=== PATIENT | male | born 1995 | race Hispanic/Latino ===

== ENCOUNTER 2018-07-24 08:31 | Emergency (ER) | payer MEDICAID, SELFPAY ==
[2018-07-24] MEDS ORDERED: LEVALBUTEROL 1.25 MG/3 ML NEB ONE ×2 (09:06→10:32)
[2018-07-24] MEDS ORDERED: IPRATROPIUM BROM 0.5MG/2.5ML ONE (09:06)
[2018-07-24] MEDS ORDERED: IBUPROFEN 200 MG TAB PO ONE (09:07)
[2018-07-24] MEDS ORDERED: NA CHLORIDE 0.9% 1,000 ML ONE (09:07)
[2018-07-24] MEDS ORDERED: IBUPROFEN 400 MG TAB ONE (09:07)
[2018-07-24 09:24] LABS: Absolute Lymphocytes (CBC) 1.8 K/uL (0.7-4.9); Absolute Monocytes 0.7 K/uL (0.1-1.3); Absolute Neutrophil 11.2 K/uL (1.8-8.0); Basophils % 0.5 % (0-1.3); Eosinophils % 1.3 % (0-4.4); Hematocrit 43.5 % (39.6-49.0); Lymphocytes % 13.1 % (15.3-44.8); MPV 9.2 fL (7.6-11.3); Monocytes % 4.9 % (3.3-12.3); RBC Red Blood Cell Count 5.11 M/uL (4.33-5.43)
[2018-07-24 09:30] LABS: Protime INR 1.16
[2018-07-24 09:46] LABS: ALT/SGPT 79 U/L (12-78); AST/SGOT 21 U/L (15-37); Albumin 3.8 g/dL (3.4-5.0); Alkaline Phosphatase 128 U/L (45-117); BUN Blood Urea Nitrogen 10 mg/dL (7-18); Bicarbonate 25 mmol/L (21-32); Bilirubin Direct 0.1 mg/dL (0-0.2); Bilirubin Total 0.4 mg/dL (0.2-1.0); Glucose Level 104 mg/dL (74-106); Potassium 3.8 mmol/L (3.5-5.1); Protein, Total 7.9 g/dL (6.4-8.2); Sodium Level 139 mmol/L (136-145); Troponin (Emerg Dept Use Only) < 0.02 ng/mL (0.0-0.045)
[2018-07-24 09:48] LABS: NT PRO-BNP < 5 pg/mL (<125)
[2018-07-24] MEDS ORDERED: predniSONE 20 MG TAB ONE (10:32)
[2018-07-24] MEDS ORDERED: CEFTRIAXONE/SWI 1gm 1 GM/10 ML SYR ONE (10:32)
--- NOTE | 2018-07-24 11:07 | RAD REPORT ---
EXAM DESCRIPTION: RAD - Chest Pa And Lat (2 Views) - 07/24/2018 9:37 am CLINICAL HISTORY: Dyspnea;Cough Chest pain. COMPARISON: No comparisons FINDINGS: The lungs are clear. The heart is upper limit of normal in size. No displaced fractures. IMPRESSION: No acute or concerning finding suspected.
--- NOTE | 2018-07-24 11:39 | RAD REPORT ---
EXAM DESCRIPTION: CT - Chest For Pe Angio - 07/24/2018 11:32 am CLINICAL HISTORY: Chest pain. Chest pain;Dyspnea;Cough COMPARISON: Chest Pa And Lat (2 Views) dated 07/24/2018 TECHNIQUE: CT angiogram of the pulmonary arteries was performed with MIP. All CT scans are performed using dose optimization technique as appropriate and may include automated exposure control or mA/KV adjustment according to patient size. FINDINGS: No evidence of pulmonary thromboembolism. No acute aortic finding demonstrated. Subtle areas of ground-glass opacity seen in both lung bases. No focal consolidation. No significant pericardial or pleural fluid. No concerning bony finding. IMPRESSION: No evidence of pulmonary thromboembolism. Subtle ground-glass opacities in both posterior lung bases could mild indicate atypical infection.
--- NOTE | 2018-07-24 12:21 | ER ---
Nurse's Notes [facility] Name: Jorge Barnes III Age: 23 yrs Sex: Male : 1995 Arrival Date: 07/24/2018 Time: 08:35 Bed 7 Private MD: None, None Diagnosis: Unspecified bacterial pneumonia Presentation: 07/24 08:48 Presenting complaint: Patient states: c/o productive cough, congestion, SOB. Transition iw of care: patient was not received from another setting of care. Onset of symptoms was June 2018. Risk Assessment: Do you want to hurt yourself or someone else? Patient reports no desire to harm self or others. Initial Sepsis Screen: Does the patient meet any 2 criteria? HR > 90 bpm. Does the patient have a suspected source of infection? No. Patient's initial sepsis screen is negative. Care prior to arrival: None. 08:48 Method Of Arrival: Ambulatory iw 08:48 Acuity: SB 3 iw Historical: - Allergies: 08:50 No Known Allergies; iw - Home Meds: 08:50 None [Active]; iw - PMHx: 08:50 None; iw - PSHx: 08:50 Tonsillectomy; iw - Immunization history:: Adult Immunizations not up to date. - Social history:: Smoking status: Patient uses tobacco products, smokes one-half pack cigarettes per day. - Ebola Screening: : Patient negative for fever greater than or equal to 101.5 degrees Fahrenheit, and additional compatible Ebola Virus Disease symptoms Patient denies exposure to infectious person Patient denies travel to an Ebola-affected area in the 21 days before illness onset No symptoms or risks identified at this time. Screenin:23 Abuse screen: Denies threats or abuse. Denies injuries from another. Nutritional jl7 screening: No deficits noted. Tuberculosis screening: No symptoms or risk factors identified. Fall Risk IV access (20 points). Total Hudson Fall Scale indicates No Risk (0-24 pts). Assessment: 09:00 General: Appears in no apparent distress. uncomfortable, Behavior is calm, cooperative, jl7 appropriate for age. Pain: Denies pain. Neuro: Level of Consciousness is awake, alert, obeys commands, Oriented to person, place, time, situation. Cardiovascular: Heart tones present Diaphoretic. Rhythm is sinus tachycardia Chest pain is denied. Respiratory: Airway is patent Respiratory effort is even, unlabored, Respiratory pattern is regular, symmetrical, Breath sounds are coarse Breath sounds with crackles bilaterally. Breath sounds with wheezes in left posterior upper lobe and right posterior upper lobe. Derm: Skin is diaphoretic, Skin is normal, Skin temperature is warm. 10:00 Reassessment: Patient appears in no apparent distress at this time. No changes from jl7 previously documented assessment. Patient and/or family updated on plan of care and expected duration. Pain level reassessed. Patient is alert, oriented x 3, equal unlabored respirations, skin warm/dry/pink. 11:00 Reassessment: Patient appears in no apparent distress at this time. No changes from jl7 previously documented assessment. Patient and/or family updated on plan of care and expected duration. Pain level reassessed. Patient is alert, oriented x 3, equal unlabored respirations, skin warm/dry/pink. 12:00 Reassessment: Patient and/or family updated on plan of care and expected duration. Pain jl7 level reassessed. Patient is alert, oriented x 3, equal unlabored respirations, skin warm/dry/pink. Patient denies pain at this time. Vital Signs: 08:50 BP 142 / 94; Pulse 125; Resp 20; Temp 98.0(O); Pulse Ox 98% on R/A; Weight 154.22 kg; iw Height 6 ft. 2 in. (187.96 cm); Pain 0/10; 09:23 BP 125 / 90; Pulse 115; Resp 13 S; Pulse Ox 94% on R/A; jl7 10:18 BP 114 / 78; Pulse 109; Resp 15 S; Temp 98.9(O); Pulse Ox 94% on R/A; jl7 10:48 BP 111 / 67; Pulse 129; Resp 17 S; Pulse Ox 95% on R/A; jl7 12:17 BP 120 / 74; Pulse 104; Resp 17; Pulse Ox 96% on R/A; jb1 08:50 Body Mass Index 43.65 (154.22 kg, 187.96 cm) ED Course: 08:35 Patient arrived in ED. mr 08:36 None, None is Private Physician. mr 08:39 Claudia Deng NP is PHCP. rh1 08:39 nAder Pope MD is Attending Physician. rh1 08:40 Keny Murphy, RN is Primary Nurse. bp 08:49 Triage completed. iw 08:50 Arm band placed on. iw 09:23 Patient has correct armband on for positive identification. Bed in low position. Call jl7 light in reach. Side rails up X 1. shelter monitor on. Pulse ox on. NIBP on. Warm blanket given. 09:23 Initial lab(s) drawn, by me, sent to lab. Flu and/or RSV swab sent to lab. Inserted jl7 saline lock: 22 gauge in right antecubital area, using aseptic technique. Blood collected. 09:30 Chest Pa And Lat (2 Views) XRAY In Process Unspecified. EDMS 10:32 Primary Nurse role handed off by Keny Murphy RN jl7 10:32 Manolo Harp RN is Primary Nurse. jl7 11:32 CT Chest For PE Angio In Process Unspecified. EDMS 13:00 No provider procedures requiring assistance completed. IV discontinued, intact, jl7 bleeding controlled, No redness/swelling at site. Pressure dressing applied. Administered Medications: 09:00 Drug: Xopenex 1.25 mg Route: Inhalation; jl7 09:25 Follow up: Response: No adverse reaction jl7 09:00 Drug: AtroVENT Aerosol 0.5 mg Route: Inhalation; jl7 09:25 Follow up: Response: No adverse reaction jl7 09:24 Drug: NS 0.9% 1000 ml Route: IV; Rate: 1 bolus; Site: right antecubital; jl7 09:24 Drug: Motrin 600 mg Route: PO; jl7 10:30 Follow up: Response: No adverse reaction jl7 10:28 Not Given (Other Intervention Used): Rocephin - (cefTRIAXone) 1 grams IVPB once over 30 jl7 mins; (mix in 50 mL NS) 10:28 Not Given (Other Intervention Used): Rocephin - (cefTRIAXone) 1 grams IVPB once over 30 jl7 mins; (mix in 50 mL NS) 10:29 Drug: Xopenex (3) 1.25 mg Route: Inhalation; jl7 11:00 Follow up: Response: No adverse reaction jl7 10:29 Drug: Rocephin 1 grams Route: IV; Rate: calculated rate; Site: right antecubital; jl7 10:32 Follow up: Response: No adverse reaction; IV Status: Completed infusion jl7 10:30 Drug: predniSONE 60 mg Route: PO; jl7 11:00 Follow up: Response: No adverse reaction jl7 Outcome: 12:21 Discharge ordered by . rh1 13:00 Discharged to home ambulatory. jl7 13:00 Condition: stable 13:00 Discharge instructions given to patient, Instructed on discharge instructions, follow up and referral plans. medication usage, Demonstrated understanding of instructions, follow-up care, medications, Prescriptions given X 3. 13:16 Patient left the ED. iw Signatures: Dispatcher [employer] EDMS Jerod Estrada jb1 FarooqTanja mr Vianca Castañeda, RN RN iw Claudia Deng PLASTIC PROCESS TECHNICIAN PLASTIC PROCESS TECHNICIAN 1 Manolo Harp RN RN jl7 Keny Murphy RN RN bp Corrections: (The following items were deleted from the chart) 09:21 09:19 General: Appears in no apparent distress. uncomfortable, Behavior is calm, jl7 cooperative, appropriate for age, jl7
--- NOTE | 2018-07-24 12:22 | EDPHYS ---
Physician Documentation [facility] Name: Jorge Barnes III Age: 23 yrs Sex: Male : 1995 Arrival Date: 07/24/2018 Time: 08:35 Bed 7 Private MD: None, None ED Physician Ander Pope HPI: 07/24 08:41 This 23 yrs old Male presents to ER via Ambulatory with complaints of rh1 Congestion. 08:41 The patient or guardian reports cough, described as moderate, with productive sputum, rh1 that is green, difficulty breathing, flu symptoms, arthralgias, myalgias. Onset: The symptoms/episode began/occurred 2 day(s) ago. Modifying factors: The symptoms are alleviated by nothing. the symptoms are aggravated by activity. Associated signs and symptoms: Pertinent positives: chest pain, with cough, with breathing, fever, rhinorrhea, Pertinent negatives: diarrhea, ear ache, sore throat, vomiting. Severity of symptoms: At their worst the symptoms were moderate in the emergency department the symptoms are unchanged. The patient has experienced a previous episode, last year. The patient has not recently seen a physician. He began with intermittent chills, body aches, productive coughing with green sputum, PND, nasal congestion, decreased smell/taste 2 days ago. + frontal BAR, described as pressure gradually began yesterday. Difficulty breathing with exertion, sternal pain with coughing/deep inspiration, + wheezing. Hx of pneumonia approx. 1 year ago. Denies any hemoptysis, no SOB at rest, no leg swelling, recent travel/surgery.. Historical: - Allergies: 08:50 No Known Allergies; iw - Home Meds: 08:50 None [Active]; iw - PMHx: 08:50 None; iw - PSHx: 08:50 Tonsillectomy; iw - Immunization history:: Adult Immunizations not up to date. - Social history:: Smoking status: Patient uses tobacco products, smokes one-half pack cigarettes per day. - Ebola Screening: : Patient negative for fever greater than or equal to 101.5 degrees Fahrenheit, and additional compatible Ebola Virus Disease symptoms Patient denies exposure to infectious person Patient denies travel to an Ebola-affected area in the 21 days before illness onset No symptoms or risks identified at this time. ROS: 08:41 Constitutional: Positive for body aches, chills, Negative for poor PO intake. rh1 08:41 ENT: Positive for nasal discharge, rhinorrhea, sinus congestion, Negative for sore throat, difficulty swallowing, difficulty handling secretions. 08:41 Neck: Negative for pain with movement, pain at rest. 08:41 Cardiovascular: Positive for chest pain, with cough, Negative for edema, palpitations. 08:41 Respiratory: Positive for cough, with green sputum, dyspnea on exertion, wheezing, Negative for hemoptysis. 08:41 Abdomen/GI: Negative for abdominal pain, nausea, vomiting, and diarrhea. 08:41 Back: Negative for decreased range of motion, pain at rest, pain with movement, radiated pain. 08:41 : Negative for small amounts. 08:41 MS/extremity: Negative for pain, paresthesias, swelling, tenderness. 08:41 Skin: Positive for diaphoresis. 08:41 Neuro: Positive for headache, Negative for altered mental status, dizziness, numbness, tingling, weakness. Exam: 08:41 Constitutional: This is a well developed, well nourished patient who is awake, alert, rh1 and in no acute distress. Eyes: Pupils equal round and reactive to light, extra-ocular motions intact. Lids and lashes normal. Conjunctiva and sclera are non-icteric and not injected. Cornea within normal limits. Periorbital areas with no swelling, redness, or edema. 08:41 Neck: Trachea midline, and no cervical lymphadenopathy. Supple, full range of motion without nuchal rigidity. No Meningismus. Chest/axilla: Normal chest wall appearance and motion. Nontender with no deformity. No lesions are appreciated. 08:41 Abdomen/GI: Soft, non-tender, with normal bowel sounds. No distension. No guarding or rebound. No evidence of tenderness throughout. Back: No spinal tenderness. No costovertebral tenderness. Full range of motion. 08:41 Head/face: Exam is negative for ecchymosis, erythema, swelling, Noted is tenderness, that is mild, of the forehead. 08:41 ENT: External ear(s): are unremarkable, no pain with movement, Ear canal(s): are normal, clear, no cerumen impaction, no erythema, no foreign body, no purulent discharge, no swelling, TM's: are normal, no evidence of bulging, no dullness, no erythema, no fluid levels, no hemotympanum, no rupture, normal bony landmarks, Nose: Nasal mucosa: erythematous, nasal drainage, that is minimal, and is seen coming from both nares, that is clear, Mouth: is normal, no lip abnormalities, no mucosal abnormalities, Posterior pharynx: is normal, airway is patent, no erythema, no exudate, no peritonsilar mass, no pooling of secretions, no swelling, normal uvula appearance, normal uvula size, tonsillectomy scars; posterior pharynx with cobblestoning. 08:41 Cardiovascular: Rate: tachycardic, actual rate is 125 bpm, Pulses: no pulse deficits are appreciated, Pulses are 2+ in right radial artery, right posterior tibial artery, right dorsalis pedis artery, left radial artery, left posterior tibial artery and left dorsalis pedis artery. Heart sounds: normal, normal S1and S2, Edema: is not appreciated, JVD: is not appreciated. 08:41 Respiratory: the patient does not display signs of respiratory distress, Respirations: normal, symetrical, no use of accessory muscles, no appreciated paradoxical movements, no prolonged exhalations, no pursed lip breathing, no splinting, no tachypnea, Breath sounds: wheezing: expiratory that is moderate, is heard in the left posterior upper lobe, right posterior upper lobe and right posterior middle lobe. 08:41 Back: Exam negative for ecchymosis 08:41 Musculoskeletal/extremity: ROM: full active range of motion, in all extremities, Circulation is intact in all extremities. Sensation intact. DVT Exam: No signs of deep vein thrombosis. no pain, no swelling, no tenderness, negative Homans' sign noted on exam, no appreciated bluish discoloration, no erythema, no increased warmth, Calves: are non-tender, have equal circumference. 08:41 Skin: Appearance: diaphoresis is noted. 08:41 Neuro: Orientation: is normal, to person, place \T\ time. Mentation: is normal, Motor: is normal, moves all fours, Sensation: is normal, no obvious gross deficits, Gait: is steady, at a normal pace, without difficulty. Vital Signs: 08:50 BP 142 / 94; Pulse 125; Resp 20; Temp 98.0(O); Pulse Ox 98% on R/A; Weight 154.22 kg; iw Height 6 ft. 2 in. (187.96 cm); Pain 0/10; 09:23 BP 125 / 90; Pulse 115; Resp 13 S; Pulse Ox 94% on R/A; jl7 10:18 BP 114 / 78; Pulse 109; Resp 15 S; Temp 98.9(O); Pulse Ox 94% on R/A; jl7 10:48 BP 111 / 67; Pulse 129; Resp 17 S; Pulse Ox 95% on R/A; jl7 12:17 BP 120 / 74; Pulse 104; Resp 17; Pulse Ox 96% on R/A; jb1 08:50 Body Mass Index 43.65 (154.22 kg, 187.96 cm) iw MDM: 08:41 Patient medically screened. rh1 10:00 Response to treatment: the patient's symptoms have mildly improved after treatment, no rh1 SOB, no chest pain, continues with coughing; diaphoresis resolved, bilateral lungs with insp/exp wheezing diffusely. 12:17 Data reviewed: vital signs, nurses notes, lab test result(s), EKG, radiologic studies, rh1 CT scan, plain films, and as a result, I will discharge patient. Data interpreted: Pulse oximetry: on room air is 95 %. Interpretation: normal. Counseling: I had a detailed discussion with the patient and/or guardian regarding: the historical points, exam findings, and any diagnostic results supporting the discharge/admit diagnosis, lab results, radiology results, the need for outpatient follow up, a family practitioner, to return to the emergency department if symptoms worsen or persist or if there are any questions or concerns that arise at home. ED course: overall feeling much improved, discussed CT findings, and need for abx therapy, he would prefer to go home, follow up with family practice. 07/24 08:49 Order name: Basic Metabolic Panel; Complete Time: 09:49 rh07/24 08:49 Order name: CBC with Diff; Complete Time: 09: rh1 07/24 08:49 Order name: LFT's; Complete Time: 09:49 rh1 07/24 08:49 Order name: Magnesium; Complete Time: 09:49 rh1 07/24 08:49 Order name: NT PRO-BNP; Complete Time: 09:49 rh1 07/24 08:49 Order name: PT-INR; Complete Time: 09:47 07/24 08:49 Order name: Troponin (emerg Dept Use Only); Complete Time: 09:49 07/24 08:49 Order name: Chest Pa And Lat (2 Views) XRAY; Complete Time: 11:08 07/24 08:49 Order name: Flu; Complete Time: 09:47 07/24 11:04 Order name: CT Chest For PE Angio; Complete Time: 12:12 07/24 08:49 Order name: EKG; Complete Time: 08:50 07/24 08:49 Order name: Cardiac monitoring; Complete Time: 09:25 07/24 08:49 Order name: EKG - Nurse/Tech; Complete Time: 09:07/24 08:49 Order name: IV Saline Lock; Complete Time: 09:25 07/24 08:49 Order name: Labs collected and sent; Complete Time: 09:25 07/24 08:49 Order name: O2 Per Protocol; Complete Time: 09:25 07/24 08:49 Order name: O2 Sat Monitoring; Complete Time: 09:25 07/24 10:13 Order name: Vital Signs: with temp please; Complete Time: 10:21 rh1 Administered Medications: 09:00 Drug: Xopenex 1.25 mg Route: Inhalation; 09:25 Follow up: Response: No adverse reaction jl7 09:00 Drug: AtroVENT Aerosol 0.5 mg Route: Inhalation; jl7 09:25 Follow up: Response: No adverse reaction 09:24 Drug: NS 0.9% 1000 ml Route: IV; Rate: 1 bolus; Site: right antecubital; 09:24 Drug: Motrin 600 mg Route: PO; jl7 10:30 Follow up: Response: No adverse reaction jl7 10:28 Not Given (Other Intervention Used): Rocephin - (cefTRIAXone) 1 grams IVPB once over 30 jl7 mins; (mix in 50 mL NS) 10:28 Not Given (Other Intervention Used): Rocephin - (cefTRIAXone) 1 grams IVPB once over 30 jl7 mins; (mix in 50 mL NS) 10:29 Drug: Xopenex (3) 1.25 mg Route: Inhalation; 7 11:00 Follow up: Response: No adverse reaction 10:29 Drug: Rocephin 1 grams Route: IV; Rate: calculated rate; Site: right antecubital; 10:32 Follow up: Response: No adverse reaction; IV Status: Completed infusion 10:30 Drug: predniSONE 60 mg Route: PO; 11:00 Follow up: Response: No adverse reaction [facility] Disposition: 15:29 Chart complete. rh1 07/25 09:13 Co-signature as Attending Physician, Ander Pope MD I agree with the assessment and sera plan of care. Disposition: 07/24/18 12:21 Discharged to Home. Impression: Unspecified bacterial pneumonia. - Condition is Stable. - Discharge Instructions: Community-Acquired Pneumonia, Adult. - Prescriptions for Doxycycline Hyclate 100 mg Oral Tablet - take 1 tablet by ORAL route every 12 hours; 20 tablet. Prednisone 20 mg Oral Tablet - take 2 tablet by ORAL route once daily for 5 days; 10 tablet. Albuterol Sulfate 90 mcg/actuation - inhale 1-2 puff by INHALATION route every 4-6 hours; 1 Inhaler. - Medication Reconciliation Form, Thank You Letter, Antibiotic Education, Prescription Opioid Use form. - Follow up: Private Physician; When: 1 - 2 days; Reason: Recheck today's complaints, Continuance of care, Re-evaluation by your physician. Follow up: Emergency Department; When: As needed; Reason: Fever > 102 F, If symptoms return, Trouble breathing, Worsening of condition. - Problem is new. - Symptoms have improved. Signatures: Dispatcher [employer] Ander Acosta MD MD cha Williams, Irene, Claudia Johnson RN, NP PLY CUTTER rh1 Manolo Harp RN RN jl7 Corrections: (The following items were deleted from the chart) 07/24 08:56 08:41 He began with intermittent chills, body aches, productive coughing with green rh1 sputum, PND, nasal congestion, decreased smell/taste 2 days ago. + frontal BAR, described as pressure gradually began yesterday. Difficulty breathing with exertion, sternal pain with coughing/deep inspiration, + wheezing. Hx of pneumonia approx. 1 year ago.. rh1 13:16 12:21 07/24/2018 12:21 Discharged to Home. Impression: Unspecified bacterial pneumonia. iw Condition is Stable. Forms are Medication Reconciliation Form, Thank You Letter, Antibiotic Education, Prescription Opioid Use. Follow up: Private Physician; When: 1 - 2 days; Reason: Recheck today's complaints, Continuance of care, Re-evaluation by your physician. Follow up: Emergency Department; When: As needed; Reason: Fever > 102 F, If symptoms return, Trouble breathing, Worsening of condition. Problem is new. Symptoms have improved. rh1
[2018-07-24 13:26] VITALS: TEMP 98.9
[2018-07-24 13:28] VITALS: BP 120/74; O2SAT 96
--- NOTE | 2018-07-25 07:24 | EKG ---
Test Date: 2018-07-24 Test Time: 08:49:07 Coal Gasification Technician: JOSEMANUEL MEASUREMENT RESULTS: Intervals: Rate: 122 MT: 146 QRSD: 90 QT: 300 QTc: 427 Orient: P: 37 MT: 146 QRS: 118 T: 33 INTERPRETIVE STATEMENTS: Sinus tachycardia Right axis deviation Possible Inferior infarct, age undetermined Abnormal ECG No previous ECG available for comparison Electronically Signed On 07-25-18 07:21:35 MACHINE ASSISTANT by Donal Cordero
== END 2018-07-24 13:16 | disposition home or self-care (01) ==
LOC: ER 08:31
DX: J15.9 Unspecified bacterial pneumonia (principal); F17.210 Nicotine dependence, cigarettes, uncomplicated
CPT/HCPCS: 36415; 71046; 71275; 80048; 80076; 83735; 83880; 84484; 85025; 85610; 87804; 93005; 96374; 99285; J0696; J7030; J7512; Q9967